=== PATIENT | female | born 1965 | race Caucasian/White ===

== ENCOUNTER 2019-06-10 12:54 | Day surgery (SDC) | payer BC ==
[2019-06-10] MEDS ORDERED: PROPOFOL 40 ML (15:31)
[2019-06-10] MEDS ORDERED: LIDOCAINE 100 MG SYRINGE (15:31)
[2019-06-10] MEDS ORDERED: FENTAnyl 50 MCG/ML VIAL (15:32)
[2019-06-10] MEDS ORDERED: ONDANSETRON 4 MG INJ (16:20)
[2019-06-10] MEDS ORDERED: LABETALOL HCL 20MG INJ IV (16:30)
[2019-06-10] MEDS ORDERED: FENTAnyl 50 MCG/ML VIAL IV ×2 (16:30)
[2019-06-10] MEDS ORDERED: OXYCODONE/ACETAMINOPHEN (5/325) TAB PO ×2 (16:30)
[2019-06-10] MEDS ORDERED: ONDANSETRON 4 MG INJ IV (16:30)
[2019-06-10] MEDS ORDERED: MEPERIDINE 25 MG INJ IV (16:30)
== END 2019-06-10 17:57 | disposition home or self-care (01) ==
LOC: GIL 12:54
DX: K57.30 Diverticulosis of large intestine without perforation or abscess without bleeding (principal); K64.8 Other hemorrhoids; K20.9 Esophagitis, unspecified; K29.70 Gastritis, unspecified, without bleeding
CPT/HCPCS: 43239; 88305; 88312; 88313